=== PATIENT | female | born 1995 | race Caucasian/White ===

== ENCOUNTER 2022-01-31 08:07 | Outpatient (CLI) | payer BC | END 2022-01-31 08:08 | disposition home or self-care (01) | LOC: SCSMRI 08:07 | PROVIDERS: ATTEND Psychiatry & Neurology Neurology | DX: R20.2 Paresthesia of skin (principal); M47.812 Spondylosis without myelopathy or radiculopathy, cervical region | CPT/HCPCS: 70553; 72156 ==